=== PATIENT | male | born 1975 | race Caucasian/White ===

== ENCOUNTER 2017-12-25 12:52 | Emergency (ER) | payer BC ==
[~2017-12-25] VITALS: Ht 165.1 cm; Wt 86.2 kg
[2017-12-25 12:52] VITALS: BP_SYST 135
[2017-12-25 14:42] VITALS: BP_SYST 129
== END 2017-12-25 14:42 | disposition home or self-care (01) ==
LOC: SED 12:52
DX: M75.41 Impingement syndrome of right shoulder (principal)
CPT/HCPCS: 73030; 99284